=== PATIENT | female | born 1995 | race Hispanic/Latino ===

== ENCOUNTER 2018-06-17 14:40 | Emergency (ER) | payer MEDICAID ==
[2018-06-17] MEDS ORDERED: SODIUM CHLORIDE 0.9% 1000ML 1,000 ML IV ONE (16:09)
[2018-06-17 16:13] LABS: BASOPHILS % (AUTO) 0.3 % (0.0-5.0); EOSINOPHILS % (AUTO) 0.6 % (0.0-8.0); HEMATOCRIT 40.3 % (36-48); LYMPHOCYTES % (AUTO) 16.5 % (21.0-51.0); MEAN CORPUSCULAR HEMOGLOBIN 31.4 pg (27.0-33.0); MEAN CORPUSCULAR HGB CONC 34.6 g/dL (32.0-36.0); MEAN CORPUSCULAR VOLUME 90.8 fL (79-99); MONOCYTES % (AUTO) 3.6 % (3.0-13.0); PLATELET COUNT (AUTO) 184 K/uL (130-400); RED BLOOD CELL COUNT(AUTO) 4.44 MIL/uL (4.00-5.50); WHITE BLOOD COUNT (AUTO) 10.7 K/uL (4.8-10.8)
[2018-06-17 16:24] LABS: CREATININE 0.6 mg/dL (0.5-1.5); POTASSIUM 3.8 mmol/L (3.5-5.1)
[2018-06-17 16:29] LABS: ALBUMIN 3.8 g/dL (3.5-5.0); BILIRUBIN,TOTAL 0.5 mg/dL (0.2-1.0); TOTAL PROTEIN, SERUM 7.8 g/dL (6.0-8.3)
[2018-06-17 16:31] LABS: BILIRUBIN,URINE Small (NEGATIVE); COLOR,URINE Dark Yellow (YELLOW); GLUCOSE, URINE (UA) Negative (NEGATIVE); KETONES,URINE Trace mg/dL (NEGATIVE); LEUKOCYTE ESTERASE ,URINE Trace (NEGATIVE); NITRATE,URINE Negative (NEGATIVE); OCCULT BLOOD,URINE Negative (NEGATIVE); PROTEIN,URINE Trace (NEGATIVE)
[2018-06-17 16:34] LABS: HCG,QUAL RESULT NEGATIVE (NEGATIVE)
[2018-06-17 16:35] LABS: APPEARANCE,URINE HAZY (CLEAR)
[2018-06-17 16:38] LABS: AMPHET/METH SCREEN,URINE NEGATIVE (NEGATIVE); BARBITURATE SCREEN, URINE NEGATIVE (NEGATIVE); BENZODIAZEPINES SCREEN,URINE NEGATIVE (NEGATIVE); CANNABINOID SCREEN,URINE NEGATIVE (NEGATIVE); COCAINE SCREEN,URINE NEGATIVE (NEGATIVE); OPIATE SCREEN,URINE NEGATIVE (NEGATIVE); PHENCYCLIDINE SCREEN,URINE NEGATIVE (NEGATIVE)
[2018-06-17 16:56] LABS: BACTERIA,URINE Rare /HPF (None Seen); RBC,URINE None Seen /HPF (0-1)
[2018-06-17 16:59] LABS: MUCUS,URINE Moderate LPF (None Seen)
[2018-06-17 17:00] LABS: TRICHOMONAS,URINE Rare /LPF (None Seen)
[2018-06-17] MEDS ORDERED: DICYCLOMINE HCL 20 MG TAB ONE (18:15)
[2018-06-17] MEDS ORDERED: FAMOTIDINE 20MG TAB 20 MG TAB ONE (18:15)
== END 2018-06-17 18:32 | disposition home or self-care (01) ==
LOC: EDH 14:40
DX: G89.29 Other chronic pain (principal); R10.9 Unspecified abdominal pain; R11.2 Nausea with vomiting, unspecified; R19.7 Diarrhea, unspecified; Z88.1 Allergy status to other antibiotic agents
CPT/HCPCS: 36415; 76705; 80053; 80305; 81001; 81025; 83690; 85025; 96360; 96361; 99284; J7030

== ENCOUNTER 2018-06-27 08:38 | Day surgery (SDC) | payer MEDICAID ==
[~2018-06-27] VITALS: Ht 154.9 cm; Wt 87.1 kg
[~2018-06-27 08:38] MED LIST: SODIUM CHLORIDE 0.9% 1000ML 1,000 ML IV ONE
[2018-06-27 09:51] VITALS: BP 117/72
[2018-06-27] MEDS ORDERED: NORG1TAB83 PO (10:05)
[2018-06-27] MEDS ORDERED: PROPOFOL 10 MG/ML 20ML VIAL IV ONE (11:23)
[2018-06-27 11:43] VITALS: BP 114/62
[2018-06-27 11:48] VITALS: BP 112/65
[2018-06-27 11:52] VITALS: BP 109/66
[2018-06-27 11:59] VITALS: BP 115/72
[2018-06-27 12:07] VITALS: BP 114/63
== END 2018-06-27 12:15 | disposition home or self-care (01) ==
LOC: ENDO 08:38 → DAH 08:38 → ENDO 12:15
PROVIDERS: ATTEND Internal Medicine Gastroenterology
DX: K31.89 Other diseases of stomach and duodenum (principal); F41.9 Anxiety disorder, unspecified; F32.9 Major depressive disorder, single episode, unspecified; J45.909 Unspecified asthma, uncomplicated; Z98.890 Other specified postprocedural states; Z79.899 Other long term (current) drug therapy; Z88.8 Allergy status to other drugs, medicaments and biological substances; Z68.35 Body mass index [BMI] 35.0-35.9, adult
CPT/HCPCS: 36415; 43237; 43239; 84703; 88305; A4606; J2704; J7030; 43231